=== PATIENT | male | born 1990 | race American Indian/Alaskan Native ===

== ENCOUNTER 2016-08-07 09:59 | Emergency (ER) | payer SELFPAY ==
[2016-08-07 10:13] VITALS: BP 120/77
[2016-08-07] MEDS ORDERED: ZITHROMAX PO ONE (12:19)
[2016-08-07] MEDS ORDERED: ROCEPHIN IM ONE (12:19)
[2016-08-07] MEDS ORDERED: XYLOCAINE 1% MPF 5 mL INFILTRATI ONE (12:19)
--- NOTE | 2016-08-07 12:41 | Emergency Department Report ---
ED General Adult HPI - General Chief complaint: Urogenital-Male Stated complaint: SWOLLEN LYMPH NODE/GROIN AREA Time Seen by Provider: 08/07/16 12:01 Source: patient Mode of arrival: Ambulatory Limitations: No Limitations - History of Present Illness Initial comments: PT c/o swollen lymph node to L side of groin. PT states he first noticed this a week and a half ago. PT states he did not think much of it because he has STD testing every 3 months for the [facility] program. PT states he was just tested and negative for gc/ct/hiv/syphilis Pt state the lymph node became larger and he went to [facility] yesterday. PT states he was told that everything was normal and not given any medication. PT has copy of lab with him that shows his UA had increased WBC. PT states he did have sex last night and states that he did notice penile discharge this am. MD Complaint: swollen lymph node Onset/Timin -: Gradual, week(s) Location: pelvis Severity scale (0 -10): 5 Consistency: constant Associated Symptoms: denies: fever/chills, loss of appetite, nausea/vomiting Treatments Prior to Arrival: none - Related Data Home Medications Medication Instructions Recorded Confirmed Last Taken Emtricitabine/Tenofovir [Truvada 1 tab PO DAILY 08/07/16 08/07/16 08/07/16 09:00 100 mg-150 mg Tablet] 1 tab Allergies Allergy/AdvReac Type Severity Reaction Status Date / Time No Known Allergies Allergy Unverified 08/07/16 10:02 ED Review of Systems ROS: Stated complaint: SWOLLEN LYMPH NODE/GROIN AREA Other details as noted in HPI Comment: All other systems reviewed and negative Constitutional: denies: chills, fever, weakness Gastrointestinal: denies: nausea, vomiting Genitourinary: discharge. denies: dysuria, testicular pain, testicular mass Skin: denies: rash, lesions, change in color ED Past Medical Hx - Past Medical History Previous Medical History?: No - Surgical History Past Surgical History?: No - Social History Smoking Status: Never Smoker Substance Use Type: None - Medications Home Medications: Home Medications Medication Instructions Recorded Confirmed Last Taken Type Emtricitabine/Tenofovir [Truvada 1 tab PO DAILY 08/07/16 08/07/16 08/07/16 09: 00 History 100 mg-150 mg Tablet] 1 tab ED Physical Exam - General Limitations: No Limitations General appearance: alert, in no apparent distress - Head Head exam: Present: atraumatic, normocephalic - Eye Eye exam: Present: normal appearance. Absent: conjunctival injection - ENT ENT exam: Present: normal exam, normal orophraynx, mucous membranes moist, normal external ear exam - Neck Neck exam: Present: normal inspection, full ROM. Absent: tenderness, meningismus, lymphadenopathy - Respiratory Respiratory exam: Present: normal lung sounds bilaterally. Absent: respiratory distress - Cardiovascular Cardiovascular Exam: Present: regular rate, normal rhythm - GI/Abdominal GI/Abdominal exam: Present: soft, normal bowel sounds. Absent: tenderness - Extremities Exam Extremities exam: Present: normal inspection, full ROM - Back Exam Back exam: Present: normal inspection, full ROM - Neurological Exam Neurological exam: Present: alert, oriented X3, normal gait - Psychiatric Psychiatric exam: Present: normal affect, normal mood - Skin Skin exam: Present: warm, dry, normal color - Other Other exam information: jessica inguinal adenopathy ED Course Vital Signs 08/07/16 10:07 Temperature 97.6 F Pulse Rate 74 Respiratory 18 Rate Blood Pressure 120/77 O2 Sat by Pulse 100 Oximetry - Reevaluation(s) Reevaluation #1: 08/07/16 12:45 with pt's c/o discharge and swollen lymph nodes. will treat empirically for gc and ct. PT aware he is to refrain from sexual activity x 1 week. PT verbalizes understanding. - Pulse Oximetry Interpretation Digit-Finger Initial Pulse Oximetry Readin Actions Taken: none ED Medical Decision Making - Differential Diagnosis gc/ ct Critical care attestation.: If time is entered above; I have spent that time in minutes in the direct care of this critically ill patient, excluding procedure time. ED Disposition Clinical Impression: Penile discharge, Inguinal adenopathy Disposition: DISCHARGED TO HOME OR SELFCARE Is pt being admited?: No Does the pt Need Aspirin: No Condition: Stable Instructions: Condom Use (ED), Sexually Transmitted Diseases (ED), Lymphadenopathy (ED) Additional Instructions: No sex x 7 days Cultures take 3-5 days for results IF you do not hear from the hospital, your PCP can request a copy of the labs for you Referrals: PRIMARY CARE, [Primary Care Provider] - 3-5 Days Time of Disposition: 12:50
== END 2016-08-07 13:10 | disposition home or self-care (01) ==
LOC: ED 09:59
DX: R59.0 Localized enlarged lymph nodes (principal); R36.9 Urethral discharge, unspecified
CPT/HCPCS: 96372; 99282; J0696

== ENCOUNTER 2016-08-25 20:22 | Emergency (ER) | payer SELFPAY ==
[2016-08-25 21:35] VITALS: BP 109/86
== END 2016-08-26 00:33 | disposition left against medical advice (07) ==
LOC: ED 20:22
DX: R10.30 Lower abdominal pain, unspecified (principal); Z53.21 Procedure and treatment not carried out due to patient leaving prior to being seen by health care provider

== ENCOUNTER 2016-08-27 01:03 | Emergency (ER) | payer SELFPAY ==
[2016-08-27] MEDS ORDERED: MOTRIN PO ONE (05:37)
--- NOTE | 2016-08-27 05:38 | Emergency Department Report ---
<THUY REN - Last Filed: 08/27/16 06:54> ED Male HPI - General Chief complaint: Urogenital-Male Stated complaint: LF GROIN PAIN Time Seen by Provider: 08/27/16 04:51 Source: patient Mode of arrival: Ambulatory Limitations: No Limitations - History of Present Illness Initial comments: This is a 26-year-old male that presents with left inguinal lymphadenopathy. Patient stated started to noticed this since one month ago. Patient denies HIV or sickle cell disease. Patient denies having a cat. Patient stated has a new sexual partner for the past 2 months. Patient denies any urethral discharge. Patient denies any ulcers or lesions in the penile area. Patient denies any fever. Associated symptoms include tenderness to touch. Patient denies dysuria or polyuria. Patient denies any medication allergies. The patient does not seem toxic or ill in appearance. No signs of any distress noted. MD Complaint: groin pain (left) -: Gradual, month(s) (1) Radiation: none Severity scale (0 -10): 4 Quality: dull Consistency: intermittent (tender to touch) Improves with: none Worsens with: none denies other symptoms. denies: discharge, swelling, mass, rash, urinary retention, blood in urine, dysuria, fever, nausea/vomiting, incontinence - Related Data Sexually active: Yes (next sexual partner 2 months ago) Home Medications Medication Instructions Recorded Confirmed Last Taken Emtricitabine/Tenofovir [Truvada 1 tab PO DAILY 08/07/16 08/07/16 08/07/16 09:00 100 mg-150 mg Tablet] 1 tab Previous Rx's Medication Instructions Recorded Last Taken Type Doxycycline [Vibramycin CAP] 100 mg PO Q12HR 10 Days 08/27/16 Unknown Rx Allergies Allergy/AdvReac Type Severity Reaction Status Date / Time No Known Allergies Allergy Unverified 08/07/16 10:02 ED Review of Systems ROS: Stated complaint: LF GROIN PAIN Other details as noted in HPI Constitutional: denies: chills, fever Eyes: denies: eye pain, eye discharge, vision change ENT: denies: ear pain, throat pain Respiratory: denies: cough, shortness of breath, wheezing Cardiovascular: denies: chest pain, palpitations Endocrine: no symptoms reported Gastrointestinal: denies: abdominal pain, nausea, diarrhea Genitourinary: denies: urgency, dysuria Musculoskeletal: denies: back pain, joint swelling, arthralgia Skin: denies: rash, lesions Neurological: denies: headache, weakness, paresthesias Psychiatric: denies: anxiety, depression Hematological/Lymphatic: denies: easy bleeding, easy bruising ED Past Medical Hx - Past Medical History Previous Medical History?: No - Surgical History Past Surgical History?: No - Social History Smoking Status: Never Smoker Substance Use Type: None - Medications Home Medications: Home Medications Medication Instructions Recorded Confirmed Last Taken Type Emtricitabine/Tenofovir [Truvada 1 tab PO DAILY 08/07/16 08/07/16 08/07/16 09: 00 History 100 mg-150 mg Tablet] 1 tab Doxycycline [Vibramycin CAP] 100 mg PO Q12HR 10 Days 08/27/16 Unknown Rx ED Physical Exam - General Limitations: No Limitations General appearance: alert, in no apparent distress - Head Head exam: Present: atraumatic, normocephalic - Eye Eye exam: Present: normal appearance - ENT ENT exam: Present: mucous membranes moist - Neck Neck exam: Present: normal inspection - Respiratory Respiratory exam: Present: normal lung sounds bilaterally. Absent: respiratory distress - Cardiovascular Cardiovascular Exam: Present: regular rate, normal rhythm. Absent: systolic murmur, diastolic murmur, rubs, gallop - GI/Abdominal GI/Abdominal exam: Present: soft, normal bowel sounds - Rectal Rectal exam: Present: deferred - Extremities Exam Extremities exam: Present: normal inspection - Back Exam Back exam: Present: normal inspection - Neurological Exam Neurological exam: Present: alert, oriented X3 - Psychiatric Psychiatric exam: Present: normal affect, normal mood - Skin Skin exam: Present: warm, dry, intact, normal color. Absent: rash - Other Other exam information: 5-8cm left lingual lymphadenopathy. No ulcers or discharge present in penile area. No signs of lesions. ED Course Vital Signs 08/27/16 08/27/16 08/27/16 02:00 06:15 07:03 Temperature 98.2 F 97.9 F Pulse Rate 86 68 Respiratory 18 18 18 Rate Blood Pressure 109/70 Blood Pressure 110/68 [Left] O2 Sat by Pulse 97 99 Oximetry - Reevaluation(s) Reevaluation #1: 08/27/16 05:49 Dr. Cantu has examined the patient and agrees to treatment and d/c plan. ED Medical Decision Making - Medical Decision Making Ed course: This is a 26-year-old male that presents with left inguinal lymphadenopathy 1- Dr. Cantu examined the patient. 2- UA and Chlamydia gonorrhea has been obtained and sent to lab 3- I instructed the patient to follow up with her primary care doctor in 3-5 days for HIV testing 4- I also instructed the patient to go to medical records obtained lab results of Chlamydia gonorrhea 5- patient was treated for Chlamydia gonorrhea with Rocephin 250 mg IM and azithromycin 1 g 6- patient is discharged with doxycycline by mouth. 7- I instructed the patient is symptoms worsen to report back to emergency room 8- at the time of discharge patient does not seem toxic or ill in appearance. No further question from the patient. 9- patient agrees to discharge plan and treatment. Critical care attestation.: If time is entered above; I have spent that time in minutes in the direct care of this critically ill patient, excluding procedure time. ED Disposition Disposition: DISCHARGED TO HOME OR SELFCARE Is pt being admited?: No Does the pt Need Aspirin: No Condition: Stable Instructions: Groin Pain (ED) Additional Instructions: Follow-up with your primary care doctor in 3-5 days for possibility of HIV testing Return to [facility] medical records for gonorrhea and chlamydia testing results If symptoms worsen report back to emergency room Take antibiotics as prescribed. Finish full course of antibiotics Prescriptions: Doxycycline [Vibramycin CAP] 100 mg PO Q12HR 10 Days Referrals: ROBEL POOLE MD [Primary Care Provider] - 3-5 Days [facility] [Outside] - 3-5 Days [facility] [Outside] - 3-5 Days CHAZ BURCIAGA MD [Staff Physician] - 3-5 Days Forms: Work/School Release Form(ED) <JAYESH CANTU - Last Filed: 08/31/16 01:30> ED Medical Decision Making - Medical Decision Making Patient was seen and examined by me. I agree with current treatment. STD test was positive for Chlamydia patient was treated appropriately
[2016-08-27] MEDS ORDERED: ZITHROMAX PO ONE (05:53)
[2016-08-27] MEDS ORDERED: ROCEPHIN IM ONE (05:53)
[2016-08-27] MEDS ORDERED: XYLOCAINE 1% MPF 5 mL INFILTRATI ONE (05:53)
[2016-08-27 06:06] LABS: Bilirubin,Urine NEG (Negative); Blood,Urine NEG (Negative); Ketones,Urine NEG (Negative); Leukocyte Esterase,Urine NEG (Negative); Nitrite,Urine NEG (Negative); Protein,Urine <15 mg/dL mg/dL (Negative); Urobilinogen,Urine < 2.0 mg/dL (<2.0)
[2016-08-27 07:04] VITALS: BP 110/68
== END 2016-08-27 07:05 | disposition home or self-care (01) ==
LOC: ED 01:03
DX: R59.0 Localized enlarged lymph nodes (principal)
CPT/HCPCS: 81001; 87591; 96372; 99282; J0696

== ENCOUNTER 2016-11-12 19:13 | Emergency (ER) | payer SELFPAY ==
[2016-11-12 22:13] LABS: Bilirubin,Urine NEG (Negative); Blood,Urine NEG (Negative); Ketones,Urine NEG (Negative); Leukocyte Esterase,Urine SM (Negative); Mucus,Urine FEW /HPF; Nitrite,Urine NEG (Negative); Protein,Urine <15 mg/dL mg/dL (Negative)
[2016-11-12] MEDS ORDERED: ROCEPHIN IM ONE (22:25)
[2016-11-12] MEDS ORDERED: XYLOCAINE 1% MPF 5 mL INFILTRATI ONE (22:25)
[2016-11-12] MEDS ORDERED: ZITHROMAX PO ONE (22:25)
--- NOTE | 2016-11-12 22:31 | Emergency Department Report ---
ED Male HPI - General Chief complaint: Urogenital-Male Stated complaint: PENIS DISCHARGE X 3DAYS Time Seen by Provider: 11/12/16 21:34 Source: patient Mode of arrival: Ambulatory Limitations: No Limitations - History of Present Illness Initial comments: 26-year-old male past medical history Chlamydia and gonorrhea presents with complaint of 3 days of penile discharge. Denies rashes on penis or genitourinary region, denies fever or chills, denies scrotal or testicular or rectal pain. Patient states that he is homosexual has multiple sexual partners and practices penetrative anal sex. Denies any lymphadenopathy. States that discharge from penis is whitish yellowish. Some complaint of dysuria intermittently for 3 days. MD Complaint: penile discharge Location: penis Severity: moderate Worsens with: urination discharge - Related Data Home Medications Medication Instructions Recorded Confirmed Last Taken Emtricitabine/Tenofovir [Truvada 1 tab PO DAILY 08/07/16 08/07/16 08/07/16 09:00 100 mg-150 mg Tablet] 1 tab Previous Rx's Medication Instructions Recorded Last Taken Type Doxycycline [Vibramycin CAP] 100 mg PO Q12HR 10 Days 08/27/16 Unknown Rx metroNIDAZOLE [Flagyl TAB] 500 mg PO Q12HR #14 tab 11/12/16 Unknown Rx Allergies Allergy/AdvReac Type Severity Reaction Status Date / Time No Known Allergies Allergy Unverified 08/07/16 10:02 ED Review of Systems ROS: Stated complaint: PENIS DISCHARGE X 3DAYS Other details as noted in HPI Constitutional: denies: chills, fever Eyes: denies: eye pain, eye discharge, vision change ENT: denies: ear pain, throat pain Respiratory: denies: cough, shortness of breath, wheezing Cardiovascular: denies: chest pain, palpitations Endocrine: no symptoms reported Gastrointestinal: denies: abdominal pain, nausea, diarrhea Genitourinary: dysuria. denies: urgency Musculoskeletal: denies: back pain, joint swelling, arthralgia Skin: denies: rash, lesions Neurological: denies: headache, weakness, paresthesias Psychiatric: denies: anxiety, depression Hematological/Lymphatic: denies: easy bleeding, easy bruising ED Past Medical Hx - Past Medical History Previous Medical History?: No - Surgical History Past Surgical History?: No - Social History Smoking Status: Never Smoker Substance Use Type: None - Medications Home Medications: Home Medications Medication Instructions Recorded Confirmed Last Taken Type Emtricitabine/Tenofovir [Truvada 1 tab PO DAILY 08/07/16 08/07/16 08/07/16 09: 00 History 100 mg-150 mg Tablet] 1 tab Doxycycline [Vibramycin CAP] 100 mg PO Q12HR 10 Days 08/27/16 Unknown Rx metroNIDAZOLE [Flagyl TAB] 500 mg PO Q12HR #14 tab 11/12/16 Unknown Rx ED Physical Exam - General Limitations: No Limitations General appearance: alert, in no apparent distress - Head Head exam: Present: atraumatic, normocephalic - Eye Eye exam: Present: normal appearance, PERRL, EOMI - ENT ENT exam: Present: mucous membranes moist - Neck Neck exam: Present: normal inspection - Respiratory Respiratory exam: Present: normal lung sounds bilaterally. Absent: respiratory distress - Cardiovascular Cardiovascular Exam: Present: regular rate, normal rhythm. Absent: systolic murmur, diastolic murmur, rubs, gallop - GI/Abdominal GI/Abdominal exam: Present: soft, normal bowel sounds - Rectal Rectal exam: Present: deferred - exam: Present: urethral discharge (yellowish whitish urethral discharge) - Extremities Exam Extremities exam: Present: normal inspection - Back Exam Back exam: Present: normal inspection - Neurological Exam Neurological exam: Present: alert, oriented X3 - Psychiatric Psychiatric exam: Present: normal affect, normal mood - Skin Skin exam: Present: warm, dry, intact, normal color. Absent: rash ED Course Vital Signs 11/12/16 21:00 Temperature 97.6 F Pulse Rate 66 Respiratory 18 Rate Blood Pressure 118/80 O2 Sat by Pulse 100 Oximetry ED Medical Decision Making - Medical Decision Making A/P: Urethritis 1-empiric treatment with ceftriaxone and azithromycin. Will add metronidazole as up-to-date.com recommends plus or minus Flagyl for Trichomonas treatment. Patient has multiple sex partners so I will give him more empiric coverage 2-follow up with primary care 3-urine culture sent Critical care attestation.: If time is entered above; I have spent that time in minutes in the direct care of this critically ill patient, excluding procedure time. ED Disposition Clinical Impression: Urethritis Disposition: DC-01 TO HOME OR SELFCARE Is pt being admited?: No Does the pt Need Aspirin: No Condition: Stable Instructions: Nonspecific Urethritis in Men (ED), Chlamydia Infection (ED), Gonococcal Urethritis (ED), Trichomoniasis (ED) Prescriptions: metroNIDAZOLE [Flagyl TAB] 500 mg PO Q12HR #14 tab Referrals: [facility] [Provider Group] - 3-5 Days [facility] [Outside] - 3-5 Days [facility] [Outside] - 3-5 Days [facility] [Outside] - 3-5 Days Forms: STI Treatment and Prevention Time of Disposition: 22:27
[2016-11-12 23:01] VITALS: BP 120/79
== END 2016-11-12 23:01 | disposition home or self-care (01) ==
LOC: ED 19:13
DX: N34.2 Other urethritis (principal)
CPT/HCPCS: 81001; 87591; 96372; 99283; J0696

== ENCOUNTER 2018-05-24 01:41 | Emergency (ER) | payer BC ==
[2018-05-24 02:12] VITALS: BP 119/74
[2018-05-24] MEDS ORDERED: XYLOCAINE 1% MPF 5 mL INFILTRATI ONE (02:34)
[2018-05-24] MEDS ORDERED: ROCEPHIN IM ONE (02:34)
[2018-05-24] MEDS ORDERED: ZITHROMAX PO ONE (02:34)
--- NOTE | 2018-05-24 02:40 | Emergency Department Report ---
ED Male HPI - General Chief complaint: Urogenital-Male Stated complaint: DISCHARGE Time Seen by Provider: 05/24/18 02:34 Source: patient Mode of arrival: Ambulatory Limitations: No Limitations, Language Barrier - History of Present Illness Initial comments: Patient 20-year-old -[place] male who presents with penile discharge white dysuria frequency urgency 3 days since last contact 1 week ago unprotected believes this is an STD is no rashes lesions or open sores no fevers or chills nausea vomiting patient does have history of being HIV positive crusting of fluid treatment for STD MD Complaint: penile discharge, dysuria Onset/Timin -: days(s) Location: penis Radiation: none Severity: moderate Severity scale (0 -10): 4 Quality: burning Consistency: intermittent Improves with: none Worsens with: urination new sexual partner discharge - Related Data Sexually active: Yes Home Medications Medication Instructions Recorded Confirmed Last Taken Emtricitabine/Tenofovir (Tdf) 1 tab PO DAILY 08/07/16 08/07/16 08/07/16 09:00 [Truvada 100 mg-150 mg Tablet] 1 tab Previous Rx's Medication Instructions Recorded Last Taken Type Doxycycline [Vibramycin CAP] 100 mg PO Q12HR 10 Days capsule 08/27/16 Unknown Rx metroNIDAZOLE [Flagyl TAB] 500 mg PO Q12HR #14 tab 11/12/16 Unknown Rx Doxycycline [Vibramycin CAP] 100 mg PO BID 10 Days #20 capsule 05/24/18 Unknown Rx Allergies Allergy/AdvReac Type Severity Reaction Status Date / Time No Known Allergies Allergy Unverified 08/07/16 10:02 ED Review of Systems ROS: Stated complaint: DISCHARGE Other details as noted in HPI Constitutional: denies: chills, fever Eyes: denies: eye pain, eye discharge, vision change ENT: denies: ear pain, throat pain Respiratory: denies: cough, shortness of breath, wheezing Cardiovascular: denies: chest pain, palpitations Endocrine: no symptoms reported Gastrointestinal: denies: abdominal pain, nausea, diarrhea Genitourinary: urgency, dysuria, frequency, discharge. denies: hematuria, testicular pain, testicular mass Musculoskeletal: denies: back pain, joint swelling, arthralgia Skin: denies: rash, lesions Neurological: denies: headache, weakness, paresthesias Psychiatric: denies: anxiety, depression Hematological/Lymphatic: denies: easy bleeding, easy bruising ED Past Medical Hx - Past Medical History Previous Medical History?: Yes Hx Asthma: Yes - Surgical History Past Surgical History?: No - Social History Smoking Status: Never Smoker Substance Use Type: None - Medications Home Medications: Home Medications Medication Instructions Recorded Confirmed Last Taken Type Emtricitabine/Tenofovir (Tdf) 1 tab PO DAILY 08/07/16 08/07/16 08/07/16 09:00 History [Truvada 100 mg-150 mg Tablet] 1 tab Doxycycline [Vibramycin CAP] 100 mg PO Q12HR 10 Days capsule 08/27/16 Unknown Rx metroNIDAZOLE [Flagyl TAB] 500 mg PO Q12HR #14 tab 11/12/16 Unknown Rx Doxycycline [Vibramycin CAP] 100 mg PO BID 10 Days #20 capsule 05/24/18 Unknown Rx ED Physical Exam - General Limitations: No Limitations, Language Barrier General appearance: alert, in no apparent distress - Head Head exam: Present: atraumatic, normocephalic - Eye Eye exam: Present: normal appearance - ENT ENT exam: Present: mucous membranes moist - Neck Neck exam: Present: normal inspection - Respiratory Respiratory exam: Present: normal lung sounds bilaterally. Absent: respiratory distress - Cardiovascular Cardiovascular Exam: Present: regular rate, normal rhythm. Absent: systolic murmur, diastolic murmur, rubs, gallop - GI/Abdominal GI/Abdominal exam: Present: soft, normal bowel sounds - Rectal Rectal exam: Present: deferred - exam: Present: other (exam defered per patient ) - Extremities Exam Extremities exam: Present: normal inspection ([facility]), full ROM (lower), normal capillary refill. Absent: tenderness, pedal edema, joint swelling, calf tenderness - Back Exam Back exam: Present: normal inspection, full ROM. Absent: tenderness, CVA tenderness (R), CVA tenderness (L), rash noted - Neurological Exam Neurological exam: Present: alert, oriented X3, CN II-XII intact, normal gait, reflexes normal. Absent: motor sensory deficit - Psychiatric Psychiatric exam: Present: normal affect, normal mood - Skin Skin exam: Present: warm, dry, intact, normal color. Absent: rash ED Course Vital Signs 05/24/18 05/24/18 02:11 02:18 Temperature 97.7 F 97.7 F Pulse Rate 68 73 Respiratory 18 18 Rate Blood Pressure 119/74 119/74 O2 Sat by Pulse 99 99 Oximetry ED Medical Decision Making - Medical Decision Making this ia a STD will tx for same, pt will follow up with pcp in 2-3 days pt verbalized agreement and understanding of discharge plan. Critical care attestation.: If time is entered above; I have spent that time in minutes in the direct care of this critically ill patient, excluding procedure time. ED Disposition Clinical Impression: STD (male) Disposition: DC- TO HOME OR SELFCARE Is pt being admited?: No Does the pt Need Aspirin: No Condition: Stable Instructions: Sexually Transmitted Diseases (ED) Prescriptions: Doxycycline [Vibramycin CAP] 100 mg PO BID 10 Days #20 capsule Referrals: GUSTAVO WILKS MD [Primary Care Provider] - 3-5 Days PRIMARY [facility] [Referring] - 3-5 Days Forms: Work/School Release Form(ED) Time of Disposition: 02:44
== END 2018-05-24 03:46 | disposition home or self-care (01) ==
LOC: ED 01:41
DX: A64 Unspecified sexually transmitted disease (principal); J45.909 Unspecified asthma, uncomplicated
CPT/HCPCS: 96372; 99282; J0696

== ENCOUNTER 2018-10-03 01:06 | Emergency (ER) | payer BC, OTHER ==
[2018-10-03 01:21] VITALS: BP 125/78
[2018-10-03] MEDS ORDERED: PROVENTIL IH ONE (01:21)
[2018-10-03] MEDS ORDERED: DUONEB *Not for PRN Use IH ONE (01:21)
[2018-10-03] MEDS ORDERED: DELTASONE PO ONE (02:51)
--- NOTE | 2018-10-03 04:01 | Emergency Department Report ---
ED General Adult HPI - General Chief complaint: Adult Asthma Stated complaint: ASTHMA Time Seen by Provider: 10/03/18 02:15 Source: patient Mode of arrival: Ambulatory Limitations: No Limitations - History of Present Illness Initial comments: Patient is a 28-year-old -[place]ian male with a history of asthma but with rare exacerbations presents to the ED with complaint of acute onset persistent numbness and sinus congestion, frontal sinus pressure and headache, dry cough with intermittent wheezing and shortness of breath for the last 3 days. Patient states that he has not used any of his bronchodilators in a long time. Patient denies dizziness, fever, chills, nausea, vomiting, abdominal pain, sore throat, chest pain or change in vision, neck pain. MD Complaint: dyspnea, nasal and sinus congestion -: Sudden, days(s) (3) Location: chest Radiation: non-radiation Severity scale (0 -10): 5 Quality: dull, other (tightness) Consistency: intermittent Improves with: none Worsens with: none Associated Symptoms: denies other symptoms, cough, shortness of breath. denies: confusion, chest pain, fever/chills, headaches, loss of appetite, malaise, nausea/vomiting, rash, seizure, syncope, weakness Treatments Prior to Arrival: none - Related Data Home Medications Medication Instructions Recorded Confirmed Last Taken Emtricitabine/Tenofovir (Tdf) 1 tab PO DAILY 08/07/16 08/07/16 08/07/16 09:00 [Truvada 100 mg-150 mg Tablet] 1 tab Previous Rx's Medication Instructions Recorded Last Taken Type DOXYCYCLINE Hyclate [Vibramycin 100 mg PO Q12HR 10 Days capsule 08/27/16 Unknown Rx CAP] metroNIDAZOLE [Flagyl TAB] 500 mg PO Q12HR #14 tab 11/12/16 Unknown Rx DOXYCYCLINE Hyclate [Vibramycin 100 mg PO BID 10 Days #20 capsule 05/24/18 Unknown Rx CAP] ALBUTEROL Inhaler (OR & NICU) 1 puff IH Q4H PRN #1 inha 10/03/18 Unknown Rx [ProAir HFA Inhaler] Azithromycin [Zithromax Z-MELY] 250 mg PO DAILY #6 tablet 10/03/18 Unknown Rx Budesonide/Formoterol Fumarate 1 - 2 can IH Q6H PRN #1 10/03/18 Unknown Rx [Symbicort 160-4.5 Mcg Inhaler] Ibuprofen [Motrin] 600 mg PO Q8H PRN #15 tablet 10/03/18 Unknown Rx Prednisone [predniSONE 10 mg 10 mg PO .TAPER #1 tab.ds.pk 10/03/18 Unknown Rx (6-Day Pack, 21 Tabs)] Allergies Allergy/AdvReac Type Severity Reaction Status Date / Time No Known Allergies Allergy Unverified 08/07/16 10:02 ED Review of Systems ROS: Stated complaint: ASTHMA Other details as noted in HPI Comment: All other systems reviewed and negative Constitutional: no symptoms reported, see HPI. denies: chills, diaphoresis, malaise Eyes: as per HPI. denies: eye pain, eye discharge, vision change ENT: as per HPI. denies: ear pain, throat pain, dental pain, hearing loss Respiratory: no symptoms reported, see HPI, cough, shortness of breath, wheezing. denies: SOB with exertion, SOB at rest Cardiovascular: as per HPI. denies: chest pain, palpitations, dyspnea on exertion, edema, syncope, paroxysmal nocturnal dyspnea Endocrine: no symptoms reported, see HPI. denies: excessive sweating, increased hunger, increased thirst, unexplained weight gain, unexplained weight loss Gastrointestinal: as per HPI. denies: abdominal pain, nausea, vomiting, diarrhea, constipation, hematemesis Genitourinary: as per HPI. denies: frequency, hematuria, discharge, testicular pain Musculoskeletal: as per HPI Skin: as per HPI. denies: rash, lesions, change in color, change in hair/nails Neurological: as per HPI, headache. denies: numbness, paresthesias, confusion Psychiatric: as per HPI, anxiety Hematological/Lymphatic: as per HPI ED Past Medical Hx - Past Medical History Previous Medical History?: Yes Hx Asthma: Yes - Surgical History Past Surgical History?: No - Social History Smoking Status: Never Smoker Substance Use Type: None - Medications Home Medications: Home Medications Medication Instructions Recorded Confirmed Last Taken Type Emtricitabine/Tenofovir (Tdf) 1 tab PO DAILY 08/07/16 08/07/16 08/07/16 09:00 History [Truvada 100 mg-150 mg Tablet] 1 tab DOXYCYCLINE Hyclate [Vibramycin 100 mg PO Q12HR 10 Days capsule 08/27/16 Unknown Rx CAP] metroNIDAZOLE [Flagyl TAB] 500 mg PO Q12HR #14 tab 11/12/16 Unknown Rx DOXYCYCLINE Hyclate [Vibramycin 100 mg PO BID 10 Days #20 capsule 05/24/18 Unknown Rx CAP] ALBUTEROL Inhaler (OR & NICU) 1 puff IH Q4H PRN #1 inha 10/03/18 Unknown Rx [ProAir HFA Inhaler] Azithromycin [Zithromax Z-MELY] 250 mg PO DAILY #6 tablet 10/03/18 Unknown Rx Budesonide/Formoterol Fumarate 1 - 2 can IH Q6H PRN #1 10/03/18 Unknown Rx [Symbicort 160-4.5 Mcg Inhaler] Ibuprofen [Motrin] 600 mg PO Q8H PRN #15 tablet 10/03/18 Unknown Rx Prednisone [predniSONE 10 mg 10 mg PO .TAPER #1 tab.ds.pk 10/03/18 Unknown Rx (6-Day Pack, 21 Tabs)] ED Physical Exam - General Limitations: No Limitations General appearance: alert, in no apparent distress - Head Head exam: Present: atraumatic, normocephalic - Eye Eye exam: Present: normal appearance, PERRL, EOMI - ENT ENT exam: Present: normal exam, normal orophraynx, mucous membranes moist, TM's normal bilaterally, normal external ear exam, other (Gross nasal congestion) - Neck Neck exam: Present: normal inspection, full ROM - Respiratory Respiratory exam: Present: normal lung sounds bilaterally, wheezes (moderate diffuse wheezes throughout the lung). Absent: chest wall tenderness, accessory muscle use, decreased breath sounds, prolonged expiratory - Cardiovascular Cardiovascular Exam: Present: regular rate, normal heart sounds - GI/Abdominal GI/Abdominal exam: Present: soft, normal bowel sounds. Absent: distended, tenderness, rebound, hyperactive bowel sounds, hypoactive bowel sounds, organomegaly - Rectal Rectal exam: Present: deferred - Extremities Exam Extremities exam: Present: normal inspection, full ROM, normal capillary refill - Back Exam Back exam: Present: normal inspection, full ROM - Neurological Exam Neurological exam: Present: alert, oriented X3, CN II-XII intact, normal gait, reflexes normal - Psychiatric Psychiatric exam: Present: normal affect - Skin Skin exam: Present: warm, dry, intact, normal color ED Course Vital Signs 10/03/18 01:17 Temperature 97.5 F L Pulse Rate 76 Respiratory 20 Rate Blood Pressure 125/78 O2 Sat by Pulse 96 Oximetry - Reevaluation(s) Reevaluation #1: 10/03/18 04:04 Patient is alert and oriented 3 and is not in distress. Patient received DuoNeb treatment and prednisone in the ED. On reevaluation, patient wheezing has resolved and patient feeling much better. Patient is hemodynamically stable and was discharged home on medications and advised to follow-up with his primary care physician in 5-7 days for reevaluation or return to the ED immediately if symptoms get worse. ED Medical Decision Making - Medical Decision Making Patient is alert and oriented 3 and is not in distress. Patient received DuoNeb treatment and prednisone in the ED. On reevaluation, patient wheezing has resolved and patient feeling much better. Patient is hemodynamically stable and was discharged home on medications and advised to follow-up with his primary care physician in 5-7 days for reevaluation or return to the ED immediately if symptoms get worse. - Differential Diagnosis acute upper respiratory infection, acute asthmatic bronchitis, acute sinusi Critical care attestation.: If time is entered above; I have spent that time in minutes in the direct care of this critically ill patient, excluding procedure time. ED Disposition Clinical Impression: Acute asthmatic bronchitis, Acute upper respiratory infection Acute maxillary sinusitis Qualifiers: Recurrence: non-recurrent Qualified Code(s): J01.00 - Acute maxillary sinusitis, unspecified Disposition: DC-01 TO HOME OR SELFCARE Is pt being admited?: No Does the pt Need Aspirin: No Condition: Stable Instructions: Acute Bronchitis (ED), Sinusitis (ED), Upper Respiratory Infection (ED) Additional Instructions: Take medications as advice, drink plenty of fluids and follow up with your primary care physician in 5-7 days for reevaluation. Return to the ED immediately if symptoms get worse. Prescriptions: Ibuprofen [Motrin] 600 mg PO Q8H PRN #15 tablet PRN Reason: Pain Prednisone [predniSONE 10 mg (6-Day Pack, 21 Tabs)] 10 mg PO .TAPER #1 tab.ds.pk ALBUTEROL Inhaler (OR & NICU) [ProAir HFA Inhaler] 1 puff IH Q4H PRN #1 inha PRN Reason: Dyspnea Budesonide/Formoterol Fumarate [Symbicort 160-4.5 Mcg Inhaler] 1 - 2 can IH Q6H PRN #1 PRN Reason: Dyspnea Azithromycin [Zithromax Z-MELY] 250 mg PO DAILY #6 tablet Referrals: LADARIUS HEMPHILL MD [Primary Care Provider] - 3-5 Days Time of Disposition: 04:13 Print Language: HEBREW
== END 2018-10-03 04:24 | disposition home or self-care (01) ==
LOC: ED 01:06
DX: J06.9 Acute upper respiratory infection, unspecified (principal); J45.909 Unspecified asthma, uncomplicated; J01.00 Acute maxillary sinusitis, unspecified
CPT/HCPCS: 94640; 99282; J7512

== ENCOUNTER 2018-12-30 00:16 | Emergency (ER) | payer OTHER ==
[2018-12-30 00:23] VITALS: BP 134/92
--- NOTE | 2018-12-30 01:26 | Emergency Department Report ---
ED General Adult HPI - General Chief complaint: Rectal Pain Stated complaint: HEMORRHOID Time Seen by Provider: 12/30/18 01:15 Source: patient Mode of arrival: Ambulatory Limitations: No Limitations - History of Present Illness Initial comments: 28-year-old -Swiss male with a known history of hemorrhoids and similar department complaining of a flareup over the last couple days. He reports throbbing rectal pain with no rectal bleeding or rectal discharge. Reports no fever, chills, sweats. No chest pain or palpitations. No nausea or vomiting. He is tried some [id number] treatments, but symptoms have not yet resolved. He is usually able to use Preparation H but it has not helped this time. He didn't be shipped to the in 2 days, unable to follow with GI until he reaches his destination -: Gradual Radiation: non-radiation Consistency: constant Improves with: none Worsens with: none Associated Symptoms: denies: confusion, chest pain, cough, diaphoresis, headaches, loss of appetite, malaise, nausea/vomiting, rash, shortness of breath, syncope, weakness Treatments Prior to Arrival: none - Related Data Home Medications Medication Instructions Recorded Confirmed Last Taken Emtricitabine/Tenofovir (Tdf) 1 tab PO DAILY 08/07/16 08/07/16 08/07/16 09:00 [Truvada 100 mg-150 mg Tablet] 1 tab Previous Rx's Medication Instructions Recorded Last Taken Type DOXYCYCLINE Hyclate [Vibramycin 100 mg PO Q12HR 10 Days capsule 08/27/16 Unknown Rx CAP] metroNIDAZOLE [Flagyl TAB] 500 mg PO Q12HR #14 tab 11/12/16 Unknown Rx DOXYCYCLINE Hyclate [Vibramycin 100 mg PO BID 10 Days #20 capsule 05/24/18 Unknown Rx CAP] ALBUTEROL Inhaler (OR & NICU) 1 puff IH Q4H PRN #1 inha 10/03/18 Unknown Rx [ProAir HFA Inhaler] Azithromycin [Zithromax Z-MELY] 250 mg PO DAILY #6 tablet 10/03/18 Unknown Rx Budesonide/Formoterol Fumarate 1 - 2 can IH Q6H PRN #1 10/03/18 Unknown Rx [Symbicort 160-4.5 Mcg Inhaler] Ibuprofen [Motrin] 600 mg PO Q8H PRN #15 tablet 06/04/19 Unknown Rx Prednisone [predniSONE 10 mg 10 mg PO .TAPER #1 tab.ds.pk 10/03/18 Unknown Rx (6-Day Pack, 21 Tabs)] Hydrocortisone [Anucort-HC SUPPOS] 25 mg RC BID #20 supp.rect 12/30/18 Unknown Rx Lidocaine/Hydrocortisone AC 0.5 gm RC TID #7 gram 12/30/18 Unknown Rx [Lidocaine HC 3-1% CREAM] Allergies Allergy/AdvReac Type Severity Reaction Status Date / Time No Known Allergies Allergy Unverified 08/07/16 10:02 ED Review of Systems ROS: Stated complaint: HEMORRHOID Other details as noted in HPI Comment: All other systems reviewed and negative ED Past Medical Hx - Past Medical History Previous Medical History?: Yes Hx Asthma: Yes - Surgical History Past Surgical History?: No - Social History Smoking Status: Never Smoker Substance Use Type: None - Medications Home Medications: Home Medications Medication Instructions Recorded Confirmed Last Taken Type Emtricitabine/Tenofovir (Tdf) 1 tab PO DAILY 08/07/16 08/07/16 08/07/16 09:00 History [Truvada 100 mg-150 mg Tablet] 1 tab DOXYCYCLINE Hyclate [Vibramycin 100 mg PO Q12HR 10 Days capsule 08/27/16 Unknown Rx CAP] metroNIDAZOLE [Flagyl TAB] 500 mg PO Q12HR #14 tab 11/12/16 Unknown Rx DOXYCYCLINE Hyclate [Vibramycin 100 mg PO BID 10 Days #20 capsule 05/24/18 Unknown Rx CAP] ALBUTEROL Inhaler (OR & NICU) 1 puff IH Q4H PRN #1 inha 10/03/18 Unknown Rx [ProAir HFA Inhaler] Azithromycin [Zithromax Z-MELY] 250 mg PO DAILY #6 tablet 10/03/18 Unknown Rx Budesonide/Formoterol Fumarate 1 - 2 can IH Q6H PRN #1 10/03/18 Unknown Rx [Symbicort 160-4.5 Mcg Inhaler] Ibuprofen [Motrin] 600 mg PO Q8H PRN #15 tablet 10/03/18 Unknown Rx Prednisone [predniSONE 10 mg 10 mg PO .TAPER #1 tab.ds.pk 10/03/18 Unknown Rx (6-Day Pack, 21 Tabs)] Hydrocortisone [Anucort-HC SUPPOS] 25 mg RC BID #20 supp.rect 12/30/18 Unknown Rx Lidocaine/Hydrocortisone AC 0.5 gm RC TID #7 gram 12/30/18 Unknown Rx [Lidocaine HC 3-1% CREAM] ED Physical Exam - General Limitations: No Limitations General appearance: alert, in no apparent distress - Head Head exam: Present: atraumatic, normocephalic - Eye Eye exam: Present: normal appearance - ENT ENT exam: Present: mucous membranes moist - Neck Neck exam: Present: normal inspection - Respiratory Respiratory exam: Present: normal lung sounds bilaterally. Absent: respiratory distress, wheezes, rales - Cardiovascular Cardiovascular Exam: Present: regular rate, normal rhythm. Absent: systolic murmur, diastolic murmur, rubs, gallop - GI/Abdominal GI/Abdominal exam: Present: soft, normal bowel sounds - Rectal Rectal exam: Present: deferred, normal rectal tone, hemorrhoids (external hemorrhoid noted. No thrombosis) - Extremities Exam Extremities exam: Present: normal inspection, normal capillary refill - Back Exam Back exam: Present: normal inspection - Neurological Exam Neurological exam: Present: alert, oriented X3 - Psychiatric Psychiatric exam: Present: normal affect, normal mood - Skin Skin exam: Present: warm, dry, intact, normal color. Absent: rash ED Course Vital Signs 12/30/18 00:20 Temperature 98.3 F Pulse Rate 73 Respiratory 20 Rate Blood Pressure 134/92 O2 Sat by Pulse 97 Oximetry ED Medical Decision Making - Medical Decision Making 28-year-old -[place]iss male with known history of hemorrhoids with an external hemorrhoid present. No signs of any thrombosis. Plan is treat him accordingly malleolus with allergies. Medications and steroid Critical care attestation.: If time is entered above; I have spent that time in minutes in the direct care of this critically ill patient, excluding procedure time. ED Disposition Clinical Impression: Hemorrhoid Disposition: DC-01 TO HOME OR SELFCARE Is pt being admited?: No Does the pt Need Aspirin: No Condition: Stable Instructions: Hemorrhoids (ED), Hemorrhoidectomy (ED), Dibucaine (On the skin) Referrals: [facility] [Provider Group] - 3-5 Days
== END 2018-12-30 01:45 | disposition home or self-care (01) ==
LOC: ED 00:16
DX: K62.5 Hemorrhage of anus and rectum (principal); J45.909 Unspecified asthma, uncomplicated; Z79.899 Other long term (current) drug therapy
CPT/HCPCS: 99282